=== PATIENT | male | born 1985 | race Two or more races ===

== ENCOUNTER 2024-09-26 09:41 | Emergency (ER) | payer OTHER ==
[~2024-09-26] VITALS: Ht 175.3 cm; Wt 68.0 kg
[2024-09-26 12:27] LABS: HEMATOCRIT 42.9 % (39.0-48.0); HEMOGLOBIN 14.7 g/dL (13-16.00); MEAN CELL VOLUME 86.7 fL (80.0-100.00); MEAN CORPUSCULAR HEMOGLOBIN 29.8 pg (27.00-32.0); MEAN CORPUSCULAR HGB CONC 34.3 g/dl (32.0-36.0); PLATELET COUNT 245 K/uL (150-450); RED BLOOD COUNT 4.95 M/uL (4.00-6.00); RED CELL DISTRIBUTION WIDTH 13.5 % (11.5-14.5)
== END 2024-09-26 13:43 | disposition home or self-care (01) ==
LOC: ER 09:42
PROVIDERS: General Practice
DX: R53.81 Other malaise (principal); R07.89 Other chest pain